=== PATIENT | male | born 1955 | race Caucasian/White ===

== ENCOUNTER 2017-05-18 12:38 | Observation (INO) | payer OTHER ==
[2017-05-18] MEDS ORDERED: NORMAL SALINE 1000 ML 1,000 ML IV ONE (13:04)
--- NOTE | 2017-05-18 13:09 | ER Document Report ---
ED Medical Screen (RME) - General Chief Complaint: Near Syncope Stated Complaint: LIGHTHEADED Time Seen by Provider: 05/18/17 13:03 Mode of Arrival: Ambulatory Information source: Patient Notes: 61-year-old male who had a triple bypass presents with complaints of lightheadedness dizziness which worsened with standing. Patient denies any chest pain shortness breath difficulty breathing at this time. He notes when he had the bypass he was having chest pain I have greeted and performed a rapid initial assessment of this patient. A comprehensive ED assessment and evaluation of the patient, analysis of test results and completion of the medical decision making process will be conducted by additional ED providers. PHYSICAL EXAMINATION: GENERAL: Well-appearing, well-nourished and in no acute distress. HEAD: Atraumatic, normocephalic. EYES: Pupils equal round extraocular movements intact, conjunctiva are normal. ENT: Nares patent NECK: Normal range of motion LUNGS: No respiratory distress Musculoskeletal: Normal range of motion NEUROLOGICAL: Normal speech, normal gait. PSYCH: Normal mood, normal affect. SKIN: Warm, Dry, normal turgor, no rashes or lesions noted. TRAVEL OUTSIDE OF THE [place] IN LAST 30 DAYS: No - Related Data Allergies/Adverse Reactions: No Known Allergies Allergy (Unverified 08/09/11 17:31) Past Medical History - Social History Chew tobacco use (# tins/day): No Frequency of alcohol use: None Drug Abuse: None - Past Medical History Cardiac Medical History: Reports: Hx Heart Attack - january 2012, Hx Hypertension Pulmonary Medical History: Denies: Hx Tuberculosis Neurological Medical History: Denies: Hx Seizures Renal/ Medical History: Denies: Hx Peritoneal Dialysis Past Surgical History: Reports: Hx Appendectomy. Denies: Hx Pacemaker - Immunizations Hx Diphtheria, Pertussis, Tetanus Vaccination: Yes Physical Exam - Vital signs Vitals: Pulse Resp BP Pulse Ox 63 18 134/67 H 96 05/18/17 12:52 05/18/17 12:52 05/18/17 12:52 05/18/17 12:52 Course - Vital Signs Vital signs: Temp Pulse Resp BP Pulse Ox 63 18 134/67 H 96 05/18/17 12:52 05/18/17 12:52 05/18/17 12:52 05/18/17 12:52
--- NOTE | 2017-05-18 13:59 | ER Document Report ---
ED Syncope and Near Syncope - General Chief Complaint: Near Syncope Stated Complaint: LIGHTHEADED Time Seen by Provider: 05/18/17 13:03 Mode of Arrival: Ambulatory TRAVEL OUTSIDE OF THE [place] IN LAST 30 DAYS: No - HPI Notes: 61-year-old male with history of CABG approximately 5 years ago presents with a near syncopal episode. He was sitting at his desk at work started feeling lightheaded stood up and almost passed out. He lost his balance but did not fall to cause an injury. He had severe diaphoresis associated. He denies any chest discomfort, breathing difficulty, palpitations or other symptoms. He currently is asymptomatic. He was driven here by private vehicle and symptoms were improving as he came to the emergency department. He did not develop any chest pain at all. No focal weakness numbness or tingling. No infectious symptoms, fever, cough, dysuria or hematuria. He is on blood pressure medications but has had no medication change. 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 - Related Data Allergies/Adverse Reactions: No Known Allergies Allergy (Unverified 08/09/11 17:31) Past Medical History - General Information source: Patient - Social History Smoking Status: Never Smoker Chew tobacco use (# tins/day): No Frequency of alcohol use: None Drug Abuse: None Family History: Reviewed & Not Pertinent Patient has suicidal ideation: No Patient has homicidal ideation: No - Past Medical History Cardiac Medical History: Reports: Hx Heart Attack - january 2012, Hx Hypertension Pulmonary Medical History: Denies: Hx Tuberculosis Neurological Medical History: Denies: Hx Seizures Renal/ Medical History: Denies: Hx Peritoneal Dialysis Past Surgical History: Reports: Hx Appendectomy. Denies: Hx Pacemaker - Immunizations Hx Diphtheria, Pertussis, Tetanus Vaccination: Yes Hx Pneumococcal Vaccination: 08/31/09 Review of Systems - Review of Systems -: Yes All other systems reviewed and negative Physical Exam - Vital signs Vitals: Pulse Resp BP Pulse Ox 63 18 134/67 H 96 05/18/17 12:52 05/18/17 12:52 05/18/17 12:52 05/18/17 12:52 - Notes Notes: Physical Exam: GENERAL: VS as per nursing doc. Well-appearing, well-nourished and in no acute distress. HEAD: Atraumatic, normocephalic. EYES: Pupils equal round and reactive to light, extraocular movements intact, sclera anicteric, no conjunctival injection or discharge. ENT: Nares patent, oropharynx clear without exudates. Moist mucous membranes. NECK: Normal range of motion, supple without lymphadenopathy. No JVD. No Carotid Bruits. LUNGS: Mild left fine crackles in the basilar region HEART: Normal S1S2. Regular rate and rhythm without murmurs. Equal peripheral pulses. ABDOMEN: Soft, non-tender. No pulsatile mass. EXTREMITIES: Normal range of motion. No calf tenderness. Negative Homans. No edema. NEUROLOGICAL: Cranial nerves intact. Normal speech. Normal sensory and motor exams. No gross cerebellar abnormalities. PSYCH: Normal mood, normal affect. SKIN: Warm, dry, no cyanosis, no splinter hemorrhages. Cap refill < 2 sec. Course - Re-evaluation Re-evalutation: 05/18/17 15:17 Patient essentially asymptomatic states he feels a little lightheaded. No further episodes here. With his prior cardiac history, I spoke with Dr. Camilo regarding admission for this patient. - Vital Signs Vital signs: Temp Pulse Resp BP Pulse Ox 52 L 18 116/67 96 05/18/17 14:39 05/18/17 12:52 05/18/17 14:39 05/18/17 12:52 - Laboratory Result Diagrams: 05/18/17 14:00 05/18/17 14:00 Laboratory results interpreted by me: 05/18/17 05/18/17 14:00 14:00 MCH 34.7 H Creatinine 1.31 H Est GFR (Non-Af Amer) 55 L Glucose 112 H - Diagnostic Test Radiology reviewed: Reports reviewed - Non-acute - EKG Interpretation by Sc EKG shows normal: Sinus rhythm Rate: Bradycardia - Sinus bradycardia, no clear ischemia, suspected old inferior myocardial infarction. No EKG for comparison. - Consults Dr. Camilo Time consulted: 15:19 - Admit to Tele Consulted provider: will see as inpatient Discharge - Discharge Clinical Impression: Near syncope, Bradycardia Condition: Fair Disposition: ADMITTED OBSERVATION Admitting Provider: Dr. Camilo Unit Admitted: Telemetry
[2017-05-18 14:12] LABS: ABSOLUTE BASOPHILS # (AUTO) 0.1 10^3/uL (0.0-0.2); ABSOLUTE EOSINOPHILS # (AUTO) 0.3 10^3/uL (0.0-0.6); ABSOLUTE LYMPHOCYTES (AUTO) 1.6 10^3/uL (0.5-4.7); ABSOLUTE MONOCYTES (AUTO) 0.6 10^3/uL (0.1-1.4); ABSOLUTE NEUT (AUTO) 4.9 10^3/uL (1.7-8.2); BASOPHILS % (AUTO) 1.3 % (0-2); EOSINOPHILS % (AUTO) 3.8 % (0-6); HEMATOCRIT 43.9 % (37.9-51.0); HEMOGLOBIN 15.8 g/dL (13.5-17.0); HGB HCT DIFFERENCE 3.5; LYMPHOCYTES % (AUTO) 21.9 % (13-45); MEAN CORPUSCULAR HEMOGLOBIN 34.7 pg (27.0-33.4); MEAN CORPUSCULAR HGB CONC 35.9 g/dL (32.0-36.0); MEAN CORPUSCULAR VOLUME 97 fl (80-97); MONOCYTES % (AUTO) 7.8 % (3-13); RED BLOOD COUNT 4.54 10^6/uL (4.35-5.55); RED CELL DISTRIBUTION WIDTH 13.2 % (11.5-14.0); SEGMENTED NEUTROPHILS % (AUTO) 65.2 % (42-78); WHITE BLOOD COUNT 7.5 10^3/uL (4.0-10.5)
--- NOTE | 2017-05-18 14:29 | RADIOLOGY REPORT (SQ) ---
EXAM DESCRIPTION: CHEST SINGLE VIEW COMPLETED DATE/TIME: 05/18/2017 2:19 pm REASON FOR STUDY: Abn lung exam, syncope COMPARISON: None. EXAM PARAMETERS: NUMBER OF VIEWS: One view. TECHNIQUE: Single frontal radiographic view of the chest acquired. RADIATION DOSE: NA LIMITATIONS: None. FINDINGS: LUNGS AND PLEURA: No opacities, masses or pneumothorax. No pleural effusion. MEDIASTINUM AND HILAR STRUCTURES: No masses. Contour normal. HEART AND VASCULAR STRUCTURES: Heart normal in size. Normal vasculature. BONES: No acute findings. HARDWARE: Sternotomy wires. OTHER: No other significant finding. IMPRESSION: NO ACUTE RADIOGRAPHIC FINDING IN THE CHEST. TECHNICAL DOCUMENTATION: JOB ID: [id number]
[2017-05-18 14:30] LABS: ALANINE AMINOTRANSFERASE 27 U/L (21-72); ALBUMIN 4.5 g/dL (3.5-5.0); ALKALINE PHOSPHATASE 78 U/L (38-126); ANION GAP 12 (5-19); ASPARTATE AMINO TRANSFERASE 19 U/L (17-59); BILIRUBIN,DIRECT 0.4 mg/dL (0.0-0.4); BILIRUBIN,TOTAL 0.9 mg/dL (0.2-1.3); BLOOD UREA NITROGEN 14 mg/dL (7-20); CALCIUM 9.7 mg/dL (8.4-10.2); CARBON DIOXIDE 25 mmol/L (22-30); CHLORIDE 103 mmol/L (98-107); CREATINE KINASE 92 U/L (55-170); CREATININE RESULT 1.31 mg/dL (0.52-1.25); GLUCOSE 112 mg/dL (75-110); POTASSIUM 4.5 mmol/L (3.6-5.0); SODIUM 140.3 mmol/L (137-145); TOTAL PROTEIN 7.6 g/dL (6.3-8.2)
[2017-05-18 14:42] LABS: CREATINE KINASE MB 0.97 ng/mL (<4.55)
[2017-05-18 14:43] LABS: TROPONIN I < 0.012 ng/mL
[2017-05-18] MEDS ORDERED: ONDANSETRON HCL INJ/PF 4 MG/2 ML SDV IV PRN (15:50)
[2017-05-18] MEDS ORDERED: NORMAL SALINE 1000 ML 1,000 ML IV PRN (15:50)
[2017-05-18] MEDS ORDERED: ACETAMINOPHEN 325 MG TABLET PO PRN (15:50)
--- NOTE | 2017-05-18 16:24 | PDOC H&P ---
History of Present Illness Admission Date/PCP: 05/18/17 15:42 MADELYN VILLARREAL MD Patient complains of: Lightheadness and Fell into wall. History of Present Illness: JARVIS AGUSTIN JR is a 61 year old male lightheadedness that resulted in patient falling into while at home. Patient states that he was sitting at his desk when he noted that he was lightheaded. Patient states that he stood up and then he fell into the wall. Patient denies loss of consciousness. Patient states he has had a similar episode like this occur before. Patient states that a few months ago his primary doctor decreased his blood pressure medication. And he states that recently his cholesterol medicine was decreased as well. Patient reports that his heart rate is normally low. Patient denied chest pain or fever. Pt states that he was short of breath. Past Medical History Cardiac Medical History: Reports: Myocardial Infarction - january 2012, Hypertension Pulmonary Medical History: Denies: Tuberculosis Neurological Medical History: Denies: Seizures Past Surgical History Past Surgical History: Reports: Appendectomy Denies: Pacemaker Social History Smoking Status: Never Smoker Hx Recreational Drug Use: No Hx Prescription Drug Abuse: No - Advance Directive Resuscitation Status: Full Code Family History Family History: Reviewed & Not Pertinent Parental Family History Reviewed: Yes Children Family History Reviewed: Yes Sibling(s) Family History Reviewed.: Yes Medication/Allergy Home Medications: Amlodipine Besylate [Norvasc 5 mg Tablet] 5 mg PO QPM 05/18/17 Aspirin [Aspirin EC] 81 mg PO DAILY 05/18/17 Atorvastatin Calcium [Lipitor 10 mg Tablet] 5 mg PO QHS 05/18/17 Enalapril Maleate [Vasotec 10 mg Tablet] 10 mg PO DAILY 05/18/17 Folic Acid/Multivit-Min/Lutein [Centrum Silver Chewable Tablet] 1 each PO DAILY 05/18/17 Ubidecarenone/Vit E Acet [Co Q-10 100 mg Softgel] 1 each PO DAILY 05/18/17 Allergies/Adverse Reactions: No Known Allergies Allergy (Unverified 08/09/11 17:31) Review of Systems Constitutional: ABSENT: chills, fever(s), headache(s), weight gain, weight loss Eyes: ABSENT: visual disturbances Ears: ABSENT: hearing changes Cardiovascular: ABSENT: chest pain, dyspnea on exertion, edema, orthropnea, palpitations Respiratory: PRESENT: dyspnea. ABSENT: cough, hemoptysis Gastrointestinal: ABSENT: abdominal pain, constipation, diarrhea, hematemesis, hematochezia, nausea, vomiting Genitourinary: ABSENT: dysuria, hematuria Musculoskeletal: ABSENT: joint swelling Integumentary: ABSENT: rash, wounds Neurological: ABSENT: abnormal gait, abnormal speech, confusion, dizziness, focal weakness, syncope Psychiatric: ABSENT: anxiety, depression, homidical ideation, suicidal ideation Endocrine: ABSENT: cold intolerance, heat intolerance, polydipsia, polyuria Hematologic/Lymphatic: ABSENT: easy bleeding, easy bruising Physical Exam Vital Signs: Temp Pulse Resp BP Pulse Ox 52 L 12 119/75 100 05/18/17 14:39 05/18/17 15:01 05/18/17 15:01 05/18/17 15:01 General appearance: PRESENT: no acute distress, well-developed, well-nourished Head exam: PRESENT: atraumatic, normocephalic Eye exam: PRESENT: conjunctiva pink, EOMI. ABSENT: scleral icterus Ear exam: PRESENT: normal external ear exam Mouth exam: PRESENT: moist, tongue midline Neck exam: ABSENT: carotid bruit, JVD, lymphadenopathy, thyromegaly Respiratory exam: PRESENT: clear to auscultation yumiko. ABSENT: rales, rhonchi, wheezes Cardiovascular exam: PRESENT: RRR. ABSENT: diastolic murmur, rubs, systolic murmur Pulses: PRESENT: normal dorsalis pedis pul Vascular exam: PRESENT: normal capillary refill GI/Abdominal exam: PRESENT: normal bowel sounds, soft. ABSENT: distended, guarding, mass, organolmegaly, rebound, tenderness Rectal exam: PRESENT: deferred Extremities exam: PRESENT: full ROM. ABSENT: calf tenderness, clubbing, pedal edema Neurological exam: PRESENT: alert, awake, oriented to person, oriented to place , oriented to time, oriented to situation, CN II-XII grossly intact. ABSENT: motor sensory deficit Psychiatric exam: PRESENT: appropriate affect, normal mood. ABSENT: homicidal ideation, suicidal ideation Skin exam: PRESENT: dry, intact, warm. ABSENT: cyanosis, rash Results Impressions: Chest X-Ray 05/18/17 13:53 IMPRESSION: NO ACUTE RADIOGRAPHIC FINDING IN THE CHEST. Assessment & Plan - Diagnosis (1) Near syncope Is this a current diagnosis for this admission?: Yes Plan: Suspect Secondary to Medication and Dehydration: Will give IVF and Stop norvasc. Will reduce dose of Enalapril. (2) Bradycardia Is this a current diagnosis for this admission?: Yes Plan: Symptomatic Bradycardia: Supportive care. (3) Hyperlipidemia Qualifiers: Hyperlipidemia type: unspecified Qualified Code(s): E78.5 - Hyperlipidemia , unspecified Is this a current diagnosis for this admission?: Yes Plan: Will continue statin. (4) Dehydration Is this a current diagnosis for this admission?: Yes Plan: Will give IVFs. (5) CAD (coronary artery disease) of bypass graft Qualifiers: Associated angina: angina presence unspecified Is this a current diagnosis for this admission?: Yes Plan: Will check Troponins and EKG in am. EKG demonstrating old inferior infarct. - Time Time Spent: 30 to 50 Minutes Anticipated discharge: Home
[2017-05-18] MEDS ORDERED: ENOXAPARIN SODIUM INJ 40 MG/0.4 ML DISP.SYRIN SUBCUT ONE (17:00)
--- NOTE | 2017-05-18 19:27 | EKG REPORT ---
SEVERITY:- ABNORMAL ECG - SINUS RHYTHM INFERIOR INFARCT, AGE INDETERMINATE : Confirmed by: Scotty Christianson MD 18-May-2017 19:26:32
[2017-05-18] MEDS ORDERED: ATORVASTATIN CALCIUM 10 MG TABLET PO SCH (22:00)
[2017-05-19 05:28] LABS: ANION GAP 7 (5-19); BLOOD UREA NITROGEN 16 mg/dL (7-20); CALCIUM 9.4 mg/dL (8.4-10.2); CARBON DIOXIDE 25 mmol/L (22-30); CHLORIDE 109 mmol/L (98-107); CHOLESTEROL 158.04 mg/dL (0-200); CREATININE RESULT 1.43 mg/dL (0.52-1.25); Direct HDL 33 mg/dL (>40); GLUCOSE 102 mg/dL (75-110); POTASSIUM 4.6 mmol/L (3.6-5.0); SODIUM 141.2 mmol/L (137-145); TRIGLYCERIDES 249 mg/dL (<150)
[2017-05-19 05:31] LABS: HEMOGLOBIN 14.6 g/dL (13.5-17.0); HGB HCT DIFFERENCE 2.8; MEAN CORPUSCULAR HEMOGLOBIN 34.8 pg (27.0-33.4); MEAN CORPUSCULAR HGB CONC 35.7 g/dL (32.0-36.0); MEAN CORPUSCULAR VOLUME 97 fl (80-97); RED BLOOD COUNT 4.21 10^6/uL (4.35-5.55); RED CELL DISTRIBUTION WIDTH 13.2 % (11.5-14.0); WHITE BLOOD COUNT 7.9 10^3/uL (4.0-10.5)
[2017-05-19 05:50] LABS: DIRECT LDL 101 mg/dL (<100)
[2017-05-19 05:51] LABS: VLDL CHOLESTEROL 49.8 mg/dL (10-31)
[2017-05-19] MEDS ORDERED: LANSOPRAZOLE 30 MG TAB.RAP.DR PO SCH (06:00)
[2017-05-19] MEDS ORDERED: ENALAPRIL MALEATE 5 MG TABLET PO SCH (10:00)
[2017-05-19] MEDS ORDERED: (PENDING PHARMACY ID) (Ubidecarenone/Vit E Acet [Co Q-10 100 Mg Softgel] 1 EACH) PO SCH (10:00)
[2017-05-19] MEDS ORDERED: (PENDING PHARMACY ID) (Folic Acid/Multivit-Min/Lutein [Centrum Silver Chewable Tablet] 1 E PO SCH (10:00)
[2017-05-19] MEDS ORDERED: ASPIRIN 81 MG TABLET, ENT COATED PO SCH (10:00)
[2017-05-19] MEDS ORDERED: ENOXAPARIN SODIUM INJ 40 MG/0.4 ML DISP.SYRIN SUBCUT SCH (10:00)
[2017-05-19] MEDS ORDERED: MULTIVITAMIN TABLET PO SCH (10:00)
--- NOTE | 2017-05-19 12:10 | XCELERA REPORT ---
[address] [address] Transthoracic Echocardiogram Report Name: JARVIS AGUSTIN JR Age: 61 yrs Gender: Male : 1955 Patient Status: Inpatient Patient Location: [address] [place] [address] Study Date: 05/19/2017 09:39 AM Height: 71 in Weight: 214 lb BSA: 2.2 m2 Procedure: A complete two-dimensional transthoracic echocardiogram was performed (2D, M-mode, spectral and color flow Doppler). The study was technically difficult with many images being suboptimal in quality. Reason For Study: Syncope Ordering Physician: ALEJANDRO MADERA Performed By: Sheela Silva Interpretation Summary The study was technically difficult with many images being suboptimal in quality. Left ventricular systolic function is low normal. Doppler measurements suggest pseudonormalized left ventricular relaxation, which is associated with grade II/IV or mild to moderate diastolic dysfunction There is borderline concentric left ventricular hypertrophy. The right ventricular systolic function is normal. The left atrium is mildly dilated. There is a mild amount of mitral regurgitation There is no mitral valve stenosis. No aortic regurgitation is present. There is no aortic valve stenosis There is a trace or physiologic amount of tricuspid regurgitation Tricuspid regurgitation jet envelope not well defined to measure RV systolic pressure accurately. There is no pericardial effusion. MMode/2D Measurements & Calculations RVDd: 3.4 cm LVIDd: 5.3 cm FS: 26.3 % Ao root diam: 3.0 cm IVSd: 0.87 cm LVIDs: 3.9 cm EDV(Teich): 135.8 ml LVPWd: 0.85 cm ESV(Teich): 66.4 ml Ao root area: 7.3 cm2 EF(Teich): 51.1 % LA dimension: 4.2 cm Doppler Measurements & Calculations MV E max citlali: MV P1/2t max citlali: Ao V2 max: LV V1 max P.7 cm/sec 64.2 cm/sec 123.1 cm/sec 3.1 mmHg MV A max citlali: MV P1/2t: 97.4 msec Ao max PG: LV V1 max: 77.5 cm/sec 6.1 mmHg 88.4 cm/sec MV E/A: 0.83 MVA(P1/2t): 2.3 cm2 MV dec slope: 192.9 cm/sec2 MV dec time: 0.33 sec PA V2 max: PI end-d citlali: TR max citlali: 79.0 cm/sec 99.9 cm/sec 252.5 cm/sec PA max PG: TR max P.5 mmHg 25.5 mmHg Left Ventricle The left ventricle is grossly normal size. There is borderline concentric left ventricular hypertrophy. Left ventricular systolic function is low normal. Doppler measurements suggest pseudonormalized left ventricular relaxation, which is associated with grade II/IV or mild to moderate diastolic dysfunction. Regional wall motion abnormalities cannot be excluded due to limited visualization. Not all wall segments were well visualized. Right Ventricle The right ventricle is normal in size, thickness and function. There is normal right ventricular wall thickness. The right ventricular systolic function is normal. Atria The right atrium is normal in size. The left atrium is mildly dilated. Interarterial septum not well visualized and not well dopplered. Cannot comment on ASD/PFO presence. Mitral Valve The mitral valve leaflets are sclerotic, but show no functional abnormalities. There is no mitral valve stenosis. There is a mild amount of mitral regurgitation. Aortic Valve The aortic valve is grossly normal. There is no aortic valve stenosis. No aortic regurgitation is present. Tricuspid Valve The tricuspid valve is not well visualized, but is grossly normal. There is no tricuspid stenosis. There is a trace or physiologic amount of tricuspid regurgitation. Tricuspid regurgitation jet envelope not well defined to measure RV systolic pressure accurately. Great Vessels The aortic root is not well visualized. The inferior vena cava was not well visualized. Effusions There is no pericardial effusion. : ALEJANDRO MADERA Shyamal
--- NOTE | 2017-05-19 14:19 | PDOC DISCHARGE SUMMARY ---
General - Admit/Disc Date/PCP Admission Date/Primary Care Provider: 05/18/17 15:50 MADELYN VILLARREAL MD Discharge Date: 05/19/17 - Discharge Diagnosis (1) Near syncope Is this a current diagnosis for this admission?: Yes Summary: Secondary to medication: Pt's Norvasc was discontinued. Pt's enalapril was decreased to 5 mg PO Qdaily. (2) Bradycardia Is this a current diagnosis for this admission?: Yes Summary: Asymptomatic Bradycardia: Supportive care. (3) Hyperlipidemia Is this a current diagnosis for this admission?: Yes Summary: Pt's Lipid profile was abnormal during this stay. Recommend increasing Lipitor to 20 or 40 mg. Will have outpatient physician address. (4) Dehydration Is this a current diagnosis for this admission?: Yes Summary: Resolved. (5) CAD (coronary artery disease) of bypass graft Is this a current diagnosis for this admission?: Yes Summary: CORNEL inhibitor and statin. - Additional Information Resuscitation Status: Full Code Discharge Diet: Cardiac Discharge Activity: Activity As Tolerated Home Medications: Aspirin [Aspirin EC] 81 mg PO DAILY 05/18/17 Atorvastatin Calcium [Lipitor 10 mg Tablet] 5 mg PO QHS 05/18/17 Folic Acid/Multivit-Min/Lutein [Centrum Silver Chewable Tablet] 1 each PO DAILY 05/18/17 Ubidecarenone/Vit E Acet [Co Q-10 100 mg Softgel] 1 each PO DAILY 05/18/17 Enalapril Maleate [Vasotec 5 mg Tablet] 5 mg PO DAILY #30 tablet 05/19/17 History of Present Illness History of Present Illness: JARVIS AGUSTIN JR is a 61 year old male lightheadedness that resulted in patient falling into while at home. Patient states that he was sitting at his desk when he noted that he was lightheaded. Patient states that he stood up and then he fell into the wall. Patient denies loss of consciousness. Patient states he has had a similar episode like this occur before. Patient states that a few months ago his primary doctor decreased his blood pressure medication. And he states that recently his cholesterol medicine was decreased as well. Patient reports that his heart rate is normally low. Patient denied chest pain or fever. Pt states that he was short of breath. Hospital Course Hospital Course: Patient is a 61-year-old gentleman that was admitted to our facility after experiencing near syncope at home. Patient was admitted to the hospital where he was given IV fluids and blood pressure medication was adjusted. Patient appeared to improve after receiving IV fluids and was up ambulating without any difficulty. Patient did have a 2D echo that was done during this stay that did not demonstrate any significant abnormalities. Pt's troponins were all negative. Patient is being discharged home on enalapril 5 mg p.o. daily only. Patient's lipid panel was abnormal and would recommend increasing patient's Lipitor. The adjustment and patient's Lipitor will be addressed by patient's senior instrumentation engineer or PCP. Patient reports that patient's cholesterol medicine was recently decreased. Patient was noted to have asymptomatic bradycardia. Physical Exam Vital Signs: Temp Pulse Resp BP Pulse Ox 97.9 F 57 L 16 114/64 97 05/19/17 11:40 05/19/17 11:40 05/19/17 11:40 05/19/17 11:40 05/19/17 11:40 Intake & Output 05/18/17 05/19/17 05/20/17 06:59 06:59 06:59 Intake Total 1200 5 Balance 1200 5 Weight 96.8 kg General appearance: PRESENT: no acute distress, well-developed, well-nourished Head exam: PRESENT: atraumatic, normocephalic Eye exam: PRESENT: conjunctiva pink, EOMI. ABSENT: scleral icterus Ear exam: PRESENT: normal external ear exam Mouth exam: PRESENT: moist, tongue midline Neck exam: ABSENT: carotid bruit, JVD, lymphadenopathy, thyromegaly Respiratory exam: PRESENT: clear to auscultation yumiko. ABSENT: rales, rhonchi, wheezes Cardiovascular exam: PRESENT: bradycardia, RRR. ABSENT: diastolic murmur, rubs , systolic murmur Pulses: PRESENT: normal dorsalis pedis pul Vascular exam: PRESENT: normal capillary refill GI/Abdominal exam: PRESENT: normal bowel sounds, soft. ABSENT: distended, guarding, mass, organolmegaly, rebound, tenderness Rectal exam: PRESENT: deferred Extremities exam: PRESENT: full ROM. ABSENT: calf tenderness, clubbing, pedal edema Neurological exam: PRESENT: alert, awake, oriented to person, oriented to place , oriented to time, oriented to situation, CN II-XII grossly intact. ABSENT: motor sensory deficit Psychiatric exam: PRESENT: appropriate affect, normal mood. ABSENT: homicidal ideation, suicidal ideation Skin exam: PRESENT: dry, intact, warm. ABSENT: cyanosis, rash Results Laboratory Results: 05/19/17 05:05 05/19/17 05:05 05/19/17 05/19/17 05:05 05:05 WBC 7.9 RBC 4.21 L Hgb 14.6 Hct 41.0 MCV 97 MCH 34.8 H MCHC 35.7 RDW 13.2 Plt Count 211 Sodium 141.2 Potassium 4.6 Chloride 109 H Carbon Dioxide 25 Anion Gap 7 BUN 16 Creatinine 1.43 H Est GFR ( Amer) > 60 Est GFR (Non-Af Amer) 50 L Glucose 102 Calcium 9.4 Triglycerides 249 H Cholesterol 158.04 LDL Cholesterol Direct 101 H VLDL Cholesterol 49.8 H HDL Cholesterol 33 L 05/18/17 05/19/17 05/19/17 22:55 05:05 11:06 Troponin I < 0.012 < 0.012 < 0.012 Impressions: Chest X-Ray 05/18/17 13:53 IMPRESSION: NO ACUTE RADIOGRAPHIC FINDING IN THE CHEST.
[2017-05-19 14:30] VITALS: BP 110/67
== END 2017-05-19 15:04 | disposition home or self-care (01) ==
LOC: ER 12:38 → EH 15:42 → UNDOADMOB 15:42 → EH 15:50 → 4S 17:13
PROVIDERS: ADMIT Emergency Medicine; ATTEND Emergency Medicine
DX: R55 Syncope and collapse (principal); R00.1 Bradycardia, unspecified; E78.5 Hyperlipidemia, unspecified; E86.0 Dehydration; I25.810 Atherosclerosis of coronary artery bypass graft(s) without angina pectoris; I10 Essential (primary) hypertension; I25.2 Old myocardial infarction; R06.00 Dyspnea, unspecified; Z79.899 Other long term (current) drug therapy; Z79.82 Long term (current) use of aspirin; Z90.49 Acquired absence of other specified parts of digestive tract; Z95.1 Presence of aortocoronary bypass graft
CPT/HCPCS: 93005; 99284; 96360; 36415 ×2; 82553; 82550; 85025; 85027; 80048; 80053; 84484 ×2; 80061; 93306; 71010; 93010; G0378 ×2; J1650; J3490; J7030

== ENCOUNTER 2017-07-21 23:31 | Emergency (ER) | payer OTHER ==
[2017-07-21] MEDS ORDERED: DIPH/PERTUSS(ACELL)/TETANUS VAC/PF 0.5 ML SYR (>=10YO) IM ONE (23:38)
[2017-07-21] MEDS ORDERED: CEFAZOLIN 1 GM/D5W RTU 1 GM/50 ML RTUPB IV ONE (23:38)
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
[2017-07-22] MEDS ORDERED: MORPHINE SULFATE 10 MG/ML INJ IV ONE ×2 (00:19→01:11)
[2017-07-22 00:24] LABS: ABSOLUTE EOSINOPHILS # (AUTO) 0.3 10^3/uL (0.0-0.6); ABSOLUTE LYMPHOCYTES (AUTO) 2.8 10^3/uL (0.5-4.7); ABSOLUTE MONOCYTES (AUTO) 0.8 10^3/uL (0.1-1.4); BASOPHILS % (AUTO) 0.3 % (0-2); EOSINOPHILS % (AUTO) 3.8 % (0-6); HEMATOCRIT 43.2 % (37.9-51.0); HEMOGLOBIN 15.5 g/dL (13.5-17.0); HGB HCT DIFFERENCE 3.3; LYMPHOCYTES % (AUTO) 35.7 % (13-45); MEAN CORPUSCULAR HEMOGLOBIN 34.7 pg (27.0-33.4); MEAN CORPUSCULAR HGB CONC 35.9 g/dL (32.0-36.0); MEAN CORPUSCULAR VOLUME 97 fl (80-97); MONOCYTES % (AUTO) 10.1 % (3-13); RED BLOOD COUNT 4.47 10^6/uL (4.35-5.55); RED CELL DISTRIBUTION WIDTH 12.8 % (11.5-14.0); SEGMENTED NEUTROPHILS % (AUTO) 50.1 % (42-78)
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
[2017-07-22 00:37] LABS: ANION GAP 14 (5-19); BLOOD UREA NITROGEN 18 mg/dL (7-20); CALCIUM 9.4 mg/dL (8.4-10.2); CARBON DIOXIDE 22 mmol/L (22-30); CHLORIDE 106 mmol/L (98-107); CREATININE RESULT 1.42 mg/dL (0.52-1.25); GLUCOSE 110 mg/dL (75-110); POTASSIUM 4.3 mmol/L (3.6-5.0); SODIUM 141.9 mmol/L (137-145)
[2017-07-22 00:40] LABS: PROTHROMBIN TIME 12.9 SEC (11.4-15.4)
[2017-07-22 00:41] LABS: PARTIAL THROMBOPLASTIN TIME 30.3 SEC (23.5-35.8)
[2017-07-22 01:24] VITALS: BP 117/65
== END 2017-07-22 01:23 | disposition short-term general hospital (02) ==
LOC: ER 23:31
DX: S61.207A Unspecified open wound of left little finger without damage to nail, initial encounter (principal); W34.00XA Accidental discharge from unspecified firearms or gun, initial encounter; F17.200 Nicotine dependence, unspecified, uncomplicated; Z95.1 Presence of aortocoronary bypass graft
CPT/HCPCS: 96376; 99284; 96375; 96365; 36415; 85025; 85610; 85730; 80048; 73140; 90715; J0690; J2270

== ENCOUNTER 2018-09-06 10:42 | Emergency (ER) | payer OTHER, MEDICARE ==
[2018-09-06] MEDS ORDERED: ASPIRIN 81 MG TABLET, CHEWABLE PO ONE (10:52)
[2018-09-06 11:10] LABS: ABSOLUTE BASOPHILS # (AUTO) 0.1 10^3/uL (0.0-0.2); ABSOLUTE EOSINOPHILS # (AUTO) 0.2 10^3/uL (0.0-0.6); ABSOLUTE LYMPHOCYTES (AUTO) 2.1 10^3/uL (0.5-4.7); ABSOLUTE MONOCYTES (AUTO) 0.6 10^3/uL (0.1-1.4); ABSOLUTE NEUT (AUTO) 4.1 10^3/uL (1.7-8.2); BASOPHILS % (AUTO) 1.1 % (0-2); EOSINOPHILS % (AUTO) 3.4 % (0-6); HEMATOCRIT 48.1 % (37.9-51.0); HEMOGLOBIN 16.7 g/dL (13.5-17.0); LYMPHOCYTES % (AUTO) 29.5 % (13-45); MEAN CORPUSCULAR HEMOGLOBIN 33.7 pg (27.0-33.4); MEAN CORPUSCULAR HGB CONC 34.7 g/dL (32.0-36.0); MEAN CORPUSCULAR VOLUME 97 fl (80-97); MONOCYTES % (AUTO) 8.4 % (3-13); PLATELET COUNT 274 10^3/uL (150-450); RED BLOOD COUNT 4.95 10^6/uL (4.35-5.55); RED CELL DISTRIBUTION WIDTH 13.3 % (11.5-14.0); SEGMENTED NEUTROPHILS % (AUTO) 57.6 % (42-78); TOTAL CELLS COUNTED % (AUTO) 100 %
[2018-09-06 11:15] VITALS: BP 113/73
[2018-09-06] MEDS ORDERED: ENOXAPARIN SODIUM INJ 30 MG/0.3 ML DISP.SYRIN IV PRN (11:19)
--- NOTE | 2018-09-06 11:23 | ER Document Report ---
Inclusion/Exclusion-STEMI - Absolute Contraindications: Any prior Intracranial Hemorrhage: No Known structural cerebral vascular lesion (AV malformations): No Known malignant intracranial neoplasm (primary ormetastatic): No Ischemic stroke with 3 months(except acute ischemic stroke with symptom onset with past 4.5 hours): No Suspected aortic dissection: No Active bleeding or bleeding diathesis (excluding menses): No Significant closed head or facial trauma within 3 months: No Intracranial or intraspinal surgery within 2 months: No Severe uncontrolled hypertension unresponsive to emergent therapy: No If yes to any of the above, DO NOT ADMINISTER FIBRINOLYTIC. Prepare patient for rapid transfer for primary PCI. - Relative Contraindictations: History of chronic, severe. poorly controlled HTN: No Significant HTN on presentation(SBP greater than 180mm Hg or DBP greater than 110 mm Hg): No History of prior ischemic stroke greater than 3 months: No Dementia: No Known intracranial pathology not covered in absolute contraindications: No Traumatic or prolonged CPR (Greater than 10 minutes): No Major Surgery less than 3 weeks: No Recent internal bleeding (within 2-4 weeks): No Non compressible vascular puncture: No : No Active peptic ulcer: No Oral anticoagulant therapy: No Consider transfer for primary PCI, if severe symptoms of cardiogenic shock (SBP less than 90 or Pulse pressure greater than 20 mmHg).
[2018-09-06] MEDS ORDERED: ENOXAPARIN SODIUM INJ 100 MG/1 ML DISP.SYRIN SUBCUT ONE (11:25)
--- NOTE | 2018-09-06 11:25 | ER Document Report ---
ED Cardiac - General Chief Complaint: Chest Pain > 30 Stated Complaint: CHEST PAIN Time Seen by Provider: 09/06/18 11:01 Mode of Arrival: Ambulatory Information source: Patient TRAVEL OUTSIDE OF THE [place] IN LAST 30 DAYS: No - HPI Patient complains to provider of: Chest pain - 63-year-old man with a past medical history significant for a four-vessel CABG 6 years prior currently on aspirin as well as lisinopril that presents for evaluation of crushing chest pain which has been going on over the last 1 hour prompting him to come to the emergency room for further evaluation. Through triage an EKG was obtained which demonstrated an ST segment myocardial infarction. He noted that he was nauseous. He noted that he has chest pressure and the sensation of heartburn which is similar to his previous heart attack. - Related Data Allergies/Adverse Reactions: No Known Allergies Allergy (Verified 09/06/18 10:53) Past Medical History - General Information source: Patient - Social History Smoking Status: Former Smoker Family History: Reviewed & Not Pertinent Patient has suicidal ideation: No Patient has homicidal ideation: No - Past Medical History Cardiac Medical History: Reports: Hx Heart Attack - january 2012, Hx Hypercholesterolemia, Hx Hypertension Pulmonary Medical History: Denies: Hx Tuberculosis Neurological Medical History: Denies: Hx Seizures Renal/ Medical History: Denies: Hx Peritoneal Dialysis Past Surgical History: Reports: Hx Appendectomy. Denies: Hx Pacemaker - Immunizations Hx Diphtheria, Pertussis, Tetanus Vaccination: Yes Hx Pneumococcal Vaccination: 08/31/09 Review of Systems - Review of Systems -: Yes All other systems reviewed and negative Physical Exam - Vital signs Vitals: Pulse Ox 94 09/06/18 10:52 - General General appearance: Alert, Anxious In distress: Mild - HEENT Head: Normocephalic Eyes: Normal Conjunctiva: Normal Cornea: Normal - Respiratory Respiratory status: No respiratory distress Chest status: Nontender, Other - Large midline sternotomy scar well-healed Breath sounds: Normal Chest palpation: Normal - Cardiovascular Rhythm: Regular Heart sounds: Normal auscultation Murmur: No - Abdominal Inspection: Normal Distension: No distension Bowel sounds: Normal Tenderness: Nontender Organomegaly: No organomegaly - Back Back: Normal, Nontender - Extremities General upper extremity: Normal inspection, Nontender, Normal ROM General lower extremity: Normal inspection, Nontender, Normal ROM - Neurological Neuro grossly intact: Yes Cognition: Normal Orientation: AAOx4 [place] Coma Scale Eye Opening: Spontaneous [place] Coma Scale Verbal: Oriented [place] Coma Scale Motor: Obeys Commands [place] Coma Scale Total: 15 Speech: Normal Motor strength normal: LUE, RUE, LLE, RLE Sensory: Normal - Psychological Associated symptoms: Normal affect, Normal mood Course - Re-evaluation Re-evalutation: Through triage an EKG was obtained, on investigation this patient. Patient was emergently transported to a room, I emergently presented to the patient at the bedside, he was transported to the bed, a monitor was placed. EKG demonstrated elevation in leads I, aVL with reciprocal depressions in 3 and aVF. Patient with active heartburn that he says is similar to his previous heart attack. Activated STEMI careline Through [facility] As this patient per [place] K restriction she has no contraindications and he has been undergoing chest pain for an hour with transport potentially taking 45 minutes believe he would benefit from potential lysis. An informed consent was performed with this patient at the bedside, we made determination to proceed with lysis. Patient was given sublingual nitroglycerin and IV fluid infusion was undertaken. He was given aspirin as well as Plavix. Because of the nausea and pressure I have little concerned that this represents a dissection at this time. Dr. Radha Talley accepted patient to [facility]. They will accept patient in ER to ER fashion. Patient was given 2 more doses of sublingual nitroglycerin, he was given a subcutaneous dose of Lovenox and IV dose of Lovenox. His blood pressure briefly decreased and he had an episode where he felt nauseous and hot. Subsequently 2 EKGs were obtained which continued to demonstrate his elevation in the anterior leads. After a liter of fluid his systolic blood pressure returned to the 120 range. I spoke to the patient and his at the bedside, TNKase was administered after 20 minutes in the emergency department. Per the timeline patient was then transported by air care to [facility] undergo further investigation. At the time of transport this patient was hemodynamically stable without any obvious signs of extremities. His EKG continued to demonstrate elevation. - Vital Signs Vital signs: Temp Pulse Resp BP Pulse Ox 98.2 F 54 L 20 113/73 94 09/06/18 10:55 09/06/18 10:55 09/06/18 10:55 09/06/18 10:55 09/06/18 10:52 - Laboratory Result Diagrams: 09/06/18 10:58 09/06/18 10:58 Laboratory results interpreted by me: 09/06/18 09/06/18 10:58 10:58 MCH 33.7 H Creatinine 1.46 H Est GFR ( Amer) 59 L Est GFR (Non-Af Amer) 48 L Glucose 132 H Critical Care Note - Critical Care Note Total time excluding time spent on procedures (mins): 65 Discharge - Discharge Clinical Impression: STEMI (ST elevation myocardial infarction) Qualifiers: Involved coronary artery: other anterior wall coronary artery Qualified Code(s): I21.09 - ST elevation (STEMI) myocardial infarction involving other c oronary artery of anterior wall Condition: Stable Disposition: [facility] Referrals: MADELYN VILLARREAL MD [Primary Care Provider] - Follow up as needed
[2018-09-06 11:27] LABS: ALANINE AMINOTRANSFERASE 23 U/L (21-72); ALBUMIN 4.6 g/dL (3.5-5.0); ALKALINE PHOSPHATASE 83 U/L (38-126); ANION GAP 10 (5-19); ASPARTATE AMINO TRANSFERASE 30 U/L (17-59); BILIRUBIN,DIRECT 0.3 mg/dL (0.0-0.4); BILIRUBIN,TOTAL 0.7 mg/dL (0.2-1.3); BLOOD UREA NITROGEN 15 mg/dL (7-20); CALCIUM 9.6 mg/dL (8.4-10.2); CARBON DIOXIDE 27 mmol/L (22-30); CHLORIDE 102 mmol/L (98-107); CREATINE KINASE 130 U/L (55-170); GLUCOSE 132 mg/dL (75-110); POTASSIUM 4.3 mmol/L (3.6-5.0); SODIUM 138.7 mmol/L (137-145); TOTAL PROTEIN 7.9 g/dL (6.3-8.2)
[2018-09-06 11:36] LABS: CREATINE KINASE MB 1.85 ng/mL (<4.55)
[2018-09-06 11:37] LABS: TROPONIN I < 0.012 ng/mL
--- NOTE | 2018-09-06 11:47 | RADIOLOGY REPORT (SQ) ---
EXAM DESCRIPTION: CHEST SINGLE VIEW COMPLETED DATE/TIME: 09/06/2018 11:22 am REASON FOR STUDY: cp COMPARISON: 05/18/2017 EXAM PARAMETERS: NUMBER OF VIEWS: One view. TECHNIQUE: Single frontal radiographic view of the chest acquired. RADIATION DOSE: NA LIMITATIONS: None. FINDINGS: LUNGS AND PLEURA: No opacities, masses or pneumothorax. No pleural effusion. MEDIASTINUM AND HILAR STRUCTURES: No masses. Contour normal. HEART AND VASCULAR STRUCTURES: Heart normal in size. Normal vasculature. BONES: No acute findings. HARDWARE: CABG. OTHER: No other significant finding. IMPRESSION: NO ACUTE RADIOGRAPHIC FINDING IN THE CHEST. TECHNICAL DOCUMENTATION: JOB ID: [id number] [employer]- All Rights Reserved Reading location - IP/workstation name: [email or web address]
--- NOTE | 2018-09-06 13:00 | EKG REPORT ---
SEVERITY:- ABNORMAL ECG - SINUS RHYTHM LEFT ANTERIOR FASCICULAR BLOCK LATERAL INJURY, PROBABLE EARLY ACUTE INFARCT : Confirmed by: Scotty Christianson MD 06-Sep-2018 13:00:01
--- NOTE | 2018-09-06 13:02 | EKG REPORT ---
SEVERITY:- ABNORMAL ECG - SINUS RHYTHM LEFT ANTERIOR FASCICULAR BLOCK LOW VOLTAGE IN FRONTAL LEADS REPOL ABNRM SUGGESTS ISCHEMIA, INFERIOR LEADS ST ELEVATION, CONSIDER LATERAL INJURY : Confirmed by: Scotty Christianson MD 06-Sep-2018 13:00:49
[2018-09-06] MEDS ORDERED: NORMAL SALINE 1000 ML 1,000 ML IV PRN (13:38)
[2018-09-06] MEDS ORDERED: CLOPIDOGREL BISULFATE 300 MG TABLET PO ONE (13:45)
== END 2018-09-06 11:45 | disposition short-term general hospital (02) ==
LOC: ER 10:42
DX: I21.09 ST elevation (STEMI) myocardial infarction involving other coronary artery of anterior wall (principal); R07.9 Chest pain, unspecified; Z95.1 Presence of aortocoronary bypass graft; Z79.899 Other long term (current) drug therapy; Z87.891 Personal history of nicotine dependence; I10 Essential (primary) hypertension; I25.2 Old myocardial infarction
CPT/HCPCS: 93005; 99291; 96372; 36415; 82553; 82550; 85025; 80053; 84484; 71045; 93010; J3490; J1650